=== PATIENT | male | born 1995 | race Two or more races ===

== ENCOUNTER 2025-05-29 01:29 | Emergency (ER) | payer SELFPAY ==
[~2025-05-29] VITALS: Ht 167.6 cm; Wt 67.1 kg
[2025-05-29] MEDS ORDERED: HYDROCODONE/APAP 5/325MG TABLET ONE (01:46)
[2025-05-29] MEDS ORDERED: TDAP [DIPH/PERTUSSIS/TET] 0.5 ML VIAL IM ONE (01:46)
[2025-05-29] MEDS: HYDROCODONE/APAP 5/325MG TABLET PO ONE (01:57)
[2025-05-29] MEDS: TDAP [DIPH/PERTUSSIS/TET] 0.5 ML VIAL IM ONE (02:11)
[2025-05-29 03:13] VITALS: BP 120/87; TEMP 98; O2SAT 99
== END 2025-05-29 04:38 | disposition home or self-care (01) ==
LOC: ER 01:34
DX: S01.81XA Laceration without foreign body of other part of head, initial encounter (principal); Y08.89XA Assault by other specified means, initial encounter; Y93.89 Activity, other specified; Y92.89 Other specified places as the place of occurrence of the external cause; Y99.8 Other external cause status
CPT/HCPCS: 70450-TC; 90715

== ENCOUNTER 2025-06-01 23:26 | Emergency (ER) | payer MEDICAID ==
[~2025-06-01] VITALS: Ht 167.6 cm; Wt 67.1 kg
[2025-06-02 00:13] VITALS: BP 113/63; TEMP 98; O2SAT 99
[2025-06-02] MEDS ORDERED: IBUP-1490 PO (00:22)
[2025-06-02] MEDS ORDERED: CEPH-570 PO (00:22)
== END 2025-06-02 00:29 | disposition home or self-care (01) ==
LOC: ER 23:28
DX: S01.81XD Laceration without foreign body of other part of head, subsequent encounter (principal); Z60.2 Problems related to living alone; X58.XXXD Exposure to other specified factors, subsequent encounter

== ENCOUNTER 2025-06-09 22:49 | Emergency (ER) | payer MEDICAID ==
[~2025-06-09] VITALS: Ht 172.7 cm; Wt 61.2 kg
[~2025-06-09 22:49] MED LIST: CEPH-570 PO; IBUP-1490 PO
[2025-06-10 00:13] VITALS: BP 124/77; TEMP 98.7; O2SAT 96
== END 2025-06-10 00:14 | disposition home or self-care (01) ==
LOC: ER 22:51
DX: S01.81XD Laceration without foreign body of other part of head, subsequent encounter (principal); Z48.02 Encounter for removal of sutures; Z60.2 Problems related to living alone; X58.XXXD Exposure to other specified factors, subsequent encounter